=== PATIENT | male | born 1945 | race Caucasian/White ===

== ENCOUNTER 2017-06-11 09:40 | Day surgery (SDC) | payer OTHER ==
[~2017-06-11] VITALS: Ht 195.6 cm; Wt 112.3 kg
[~2017-06-11 09:40] MED LIST: TAMS.4ER
[2017-06-11] MEDS ORDERED: METO25ER (09:53)
[2017-06-11] MEDS ORDERED: ASPI81CH (09:58)
== END 2017-06-11 11:32 | disposition home or self-care (01) ==
LOC: ORSCSDS 09:40
PROVIDERS: Internal Medicine Gastroenterology
PROC: 0DBK8ZX Excision of Ascending Colon, Via Natural or Artificial Opening Endoscopic, Diagnostic (ICD-10-PCS; principal; 2017-06-11 11:00)
PROC: 0DBN8ZX Excision of Sigmoid Colon, Via Natural or Artificial Opening Endoscopic, Diagnostic (ICD-10-PCS; principal; 2017-06-11 11:00)
DX: Z12.11 Encounter for screening for malignant neoplasm of colon (principal); D12.2 Benign neoplasm of ascending colon; D12.5 Benign neoplasm of sigmoid colon; K64.8 Other hemorrhoids; K57.30 Diverticulosis of large intestine without perforation or abscess without bleeding; I10 Essential (primary) hypertension; Z87.891 Personal history of nicotine dependence; Z79.82 Long term (current) use of aspirin; Z79.899 Other long term (current) drug therapy
CPT/HCPCS: 88305

== ENCOUNTER 2021-09-27 09:05 | Emergency (ER) | payer OTHER ==
[~2021-09-27] VITALS: Ht 195.6 cm; Wt 108.9 kg
[~2021-09-27 09:05] MED LIST changes: +ASPI81CH; +METO25ER
[2021-09-27] MEDS ORDERED: Naproxen500 M1 PO (11:57)
== END 2021-09-27 12:10 | disposition home or self-care (01) ==
LOC: ER 09:05
DX: M25.561 Pain in right knee (principal); Z79.82 Long term (current) use of aspirin; Z79.899 Other long term (current) drug therapy; W01.0XXA Fall on same level from slipping, tripping and stumbling without subsequent striking against object, initial encounter; Y92.828 Other wilderness area as the place of occurrence of the external cause
CPT/HCPCS: 73562-RT

== ENCOUNTER 2024-05-18 13:59 | Day surgery (SDC) | payer OTHER ==
[~2024-05-18] VITALS: Ht 195.6 cm; Wt 112.2 kg
[~2024-05-18 13:59] MED LIST changes: +Aspir 8181 MG PO; +ELIQUIS5 M2 PO; +Glycopyrrolate 0.2 MG/ML 1MLVIAL ONE; +LOSA25 PO; +Lactated Ringer's 1,000 ML IV ONE; +Lidocaine 2% 5 ML SDV ONE; +Lidocaine HCl/Pf 1% 5 ML VIAL ONE; +Naproxen500 M1 PO; +Ondansetron HCl 2 MG / ML 2ML Vial ONE; +ePHEDrine Sulfate 50 MG/ML 1ML Injection ONE
[2024-05-18] MEDS ORDERED: ENTRESTO 97 MG1 EACH (14:27)
[2024-05-18] MEDS ORDERED: ATOR20 (14:27)
[2024-05-18] MEDS ORDERED: Lactated Ringer's 1,000 ML IV ONE (15:16)
[2024-05-18] MEDS ORDERED: propofoL 50 ML IV ONE (15:53)
[2024-05-18] MEDS ORDERED: Vasopressin 20 UNITS/ML 1ML Vial ONE (15:57)
[2024-05-18] MEDS ORDERED: Etomidate 2MG / ML 10ML Vial ONE (15:57)
[2024-05-18] MEDS ORDERED: Phenylephrine HCl 100 MCG/ML-NS 10MLSYR (1MG/10ML) ONE (15:57)
[2024-05-18 17:14] VITALS: BP 123/90
== END 2024-05-18 17:03 | disposition home or self-care (01) ==
LOC: ORSCSDS 13:59
PROVIDERS: Internal Medicine Gastroenterology
PROC: 0DJD8ZZ Inspection of Lower Intestinal Tract, Via Natural or Artificial Opening Endoscopic (ICD-10-PCS; principal; 2024-05-18 15:00)
DX: Z12.11 Encounter for screening for malignant neoplasm of colon (principal); K57.30 Diverticulosis of large intestine without perforation or abscess without bleeding; Z86.0100 Personal history of colon polyps, unspecified; I10 Essential (primary) hypertension; I48.91 Unspecified atrial fibrillation; I50.9 Heart failure, unspecified; I42.9 Cardiomyopathy, unspecified; N40.0 Benign prostatic hyperplasia without lower urinary tract symptoms; Z79.01 Long term (current) use of anticoagulants; Z79.899 Other long term (current) drug therapy
CPT/HCPCS: J2003; J2371; J2405; J2704; J7120